=== PATIENT | male | born 1940 | race Caucasian/White ===

== ENCOUNTER 2025-01-01 14:51 | Inpatient (IN) | payer MEDICARE, OTHER ==
[~2025-01-01] VITALS: Ht 170.2 cm; Wt 71.7 kg
[2025-01-01 15:37] LABS: BASOPHILS # (AUTO) 0.1 K/UL (0.0-0.2); BASOPHILS % (AUTO) 0.7 % (0.0-2.0); EOSINOPHILS # (AUTO) 0.1 K/uL (0.0-0.7); EOSINOPHILS % (AUTO) 1.7 % (0.0-7.0); HEMATOCRIT 39.4 % (36.7-47.1); HEMOGLOBIN 13.7 g/dL (12.5-16.3); LYMPHOCYTES # (AUTO) 1.8 K/uL (0.8-4.8); LYMPHOCYTES % (AUTO) 23.6 % (20.5-51.5); MEAN CORPUSCULAR HEMOGLOBIN 32.7 uug (23.8-33.4); MEAN CORPUSCULAR HGB CONC 35 g/dL (32.5-36.3); MEAN CORPUSCULAR VOLUME 94.3 fL (73.0-96.2); MONOCYTES # (AUTO) 0.5 K/uL (0.1-1.30); MONOCYTES % (AUTO) 6.2 % (0.0-11.0); NEUTROPHILS # (AUTO) 5.2 K/uL (1.8-8.9); NEUTROPHILS % (AUTO) 67.8 % (38.5-71.5); PLATELET COUNT (AUTO) 151 K/uL (152-348); RED BLOOD CELL COUNT(AUTO) 4.17 MIL/uL (4.06-5.63); RED CELL DISTRIBUTION WIDTH 14.1 % (12.1-16.2); WHITE BLOOD COUNT (AUTO) 7.7 K/uL (3.6-10.2)
[2025-01-01 15:42] LABS: CARBON DIOXIDE 27 mmol/L (21-32); CHLORIDE 104 mmol/L (98-107); CREATININE 1.3 mg/dL (0.6-1.3); DIFFERENTIAL COMMENT 1; GLUCOSE 159 mg/dL (74-106); POTASSIUM 3.8 mmol/L (3.5-5.1); SODIUM SERUM 142 mmol/L (136-145); UREA NITROGEN, BLOOD 26 mg/dL (7-18)
[2025-01-01] MEDS: IV NORMAL SALINE 1000 ML BAG IV ONE (15:46)
[2025-01-01 15:54] LABS: LACTIC ACID 2.9 mmol/L (0.4-2.0)
[2025-01-01 15:55] LABS: ALANINE AMINOTRANSFERASE 15 U/L (16-63); ALBUMIN 3.4 g/dL (3.4-5.0); ALKALINE PHOSPHATASE 86 U/L (50-136); ASPARTATE AMINOTRANSFERASE 14 U/L (15-37); BILIRUBIN,DIRECT 0.2 mg/dL (0.0-0.2); BILIRUBIN,TOTAL 0.5 mg/dL (0.2-1.0); NT-PRO BNP 163 pg/mL (0-125)
[2025-01-01] MEDS ORDERED: CEFTRIAXONE /D5W 50ML IVPB **ER PYXIS IV ONE (16:17)
[2025-01-01] MEDS ORDERED: AZITHROMYCIN 500MG/ D5W 250ML IVPB **ER PYXIS ONLY IV ONE (16:17)
[2025-01-01] MEDS: CEFTRIAXONE 1 G in IV DEXTROSE 5% 50 ML IV ONE (16:19)
[2025-01-01] MEDS: AZITHROMYCIN IV 500 MG in IV DEXTROSE 5% 250 ML IV ONE (16:23)
[2025-01-01] MEDS ORDERED: ACETAMINOPHEN 325 MG TABLET PO PRN (17:15)
[2025-01-01] MEDS ORDERED: ONDANSETRON 4 MG/2 ML VIAL IV PRN (17:15)
[2025-01-01] MEDS ORDERED: MORPHINE SULFATE 2 MG/1 ML DISP.SYRIN IVP PRN (17:15)
[2025-01-01] MEDS ORDERED: DEXTROSE 50% 50 ML DISP.SYRIN IV PRN (17:15)
[2025-01-01] MEDS ORDERED: ICOS1CAP PO (17:45)
[2025-01-01] MEDS ORDERED: ATOR40TA PO (17:45)
[2025-01-01] MEDS ORDERED: METO25TA6 PO (17:45)
[2025-01-01] MEDS ORDERED: CHOL500062 PO (17:45)
[2025-01-01] MEDS ORDERED: AMLO2.5T4 PO (17:45)
[2025-01-01] MEDS ORDERED: ASPI-1169 PO (17:45)
[2025-01-01] MEDS ORDERED: [UNRECOGNIZED DRUG - CODE] PO (17:45)
[2025-01-01] MEDS ORDERED: LOSA50TA3 PO (17:45)
[2025-01-01] MEDS ORDERED: HYDR-3980 PO (17:45)
[2025-01-01] MEDS ORDERED: BLOO-1672 PO (17:45)
[2025-01-01] MEDS ORDERED: FAMO20TA8 PO (17:45)
[2025-01-01] MEDS ORDERED: SITA100T PO (17:45)
[2025-01-01] MEDS ORDERED: DAPA10TA PO (17:45)
[2025-01-01] MEDS ORDERED: METF-442 PO (17:45)
[2025-01-01] MEDS ORDERED: TAMS-3 PO (17:45)
[2025-01-01 18:52] VITALS: BP 111/75; TEMP 97.8; O2SAT 99
[2025-01-01 19:00] VITALS: BP 111/75; TEMP 97.8; O2SAT 99
[2025-01-01] MEDS: IV NS 1000 ML 1,000 ML IV ONE (19:45)
[2025-01-01] MEDS: BLOOD SUGAR DIAGNOSTIC 1 EACH STRIP VI SCH (20:37)
[2025-01-01] MEDS: ATORVASTATIN 40 MG TABLET PO SCH (20:37)
[2025-01-01] MEDS: IV NS 1000 ML 1,000 ML IV SCH (20:57)
[2025-01-02] VITALS (7 sets, daily range): BP systolic 138–176; BP diastolic 61–84; TEMP 97.5–98.6; O2SAT 96–100
[2025-01-02 06:52] LABS: *BILIRUBIN,URIN NEGATIVE (NEGATIVE); *CLARITY,URINE CLEAR (CLEAR); *COLOR,URINE YELLOW (YELLOW); *KETONES,URINE NEGATIVE (NEGATIVE); *PROTEIN,URINE NEGATIVE (NEGATIVE); *UROBILINOGEN,URINE 0.2 E.U./dl (NORMAL); LEUKOCYTE ESTERASE ,URINE NEGATIVE (NEGATIVE); NITRITE, URINE NEGATIVE (NEGATIVE)
[2025-01-02 06:55] LABS: *BLOOD, URINE TRACE (NEGATIVE); UGLUCOSE 2+ (NEGATIVE)
[2025-01-02 06:56] LABS: BASOPHILS % (AUTO) 0.6 % (0.0-2.0); EOSINOPHILS # (AUTO) 0.1 K/uL (0.0-0.7); EOSINOPHILS % (AUTO) 1.9 % (0.0-7.0); HEMATOCRIT 38.6 % (36.7-47.1); HEMOGLOBIN 13.5 g/dL (12.5-16.3); LYMPHOCYTES # (AUTO) 1.3 K/uL (0.8-4.8); MEAN CORPUSCULAR HGB CONC 35 g/dL (32.5-36.3); MEAN CORPUSCULAR VOLUME 94.3 fL (73.0-96.2); MONOCYTES # (AUTO) 0.4 K/uL (0.1-1.30); MONOCYTES % (AUTO) 6.1 % (0.0-11.0); NEUTROPHILS # (AUTO) 4.6 K/uL (1.8-8.9); NEUTROPHILS % (AUTO) 71.4 % (38.5-71.5); PLATELET COUNT (AUTO) 133 K/uL (152-348); RED BLOOD CELL COUNT(AUTO) 4.09 MIL/uL (4.06-5.63); RED CELL DISTRIBUTION WIDTH 13.8 % (12.1-16.2); WHITE BLOOD COUNT (AUTO) 6.4 K/uL (3.6-10.2)
[2025-01-02 07:08] LABS: DIFFERENTIAL COMMENT 1
[2025-01-02 07:16] LABS: ALANINE AMINOTRANSFERASE 14 U/L (16-63); ALBUMIN 3.2 g/dL (3.4-5.0); ALKALINE PHOSPHATASE 83 U/L (50-136); ASPARTATE AMINOTRANSFERASE 15 U/L (15-37); BILIRUBIN,TOTAL 0.8 mg/dL (0.2-1.0); CALCIUM 8.7 mg/dL (8.5-10.1); CARBON DIOXIDE 26 mmol/L (21-32); CHLORIDE 109 mmol/L (98-107); CREATININE 0.8 mg/dL (0.6-1.3); GLUCOSE 101 mg/dL (74-106); PHOSPHOROUS 3.1 mg/dL (2.5-4.9); POTASSIUM 3.8 mmol/L (3.5-5.1); SODIUM SERUM 143 mmol/L (136-145); TOTAL PROTEIN, SERUM 6.7 g/dL (6.4-8.2); UREA NITROGEN, BLOOD 15 mg/dL (7-18)
[2025-01-02 07:46] LABS: WBC,URINE 0-3 /HPF (0-3)
[2025-01-02] MEDS: TAMSULOSIN HCL 0.4 MG CAP.SR.24H PO SCH (08:05)
[2025-01-02] MEDS: DAPAGLIFLOZIN PROPANEDIOL 10 MG TABLET PO SCH (08:05)
[2025-01-02] MEDS: ASPIRIN 81 MG TAB.CHEW PO SCH (08:05)
[2025-01-02] MEDS: HEPARIN SODIUM,PORCINE 5,000 UNITS/ML VIAL SQ SCH (08:06)
[2025-01-02] MEDS: hydrALAZINE HCL 20 MG/1 ML VIAL IV PRN (08:07)
[2025-01-02] MEDS: INSULIN REGULAR, HUMAN 1000 UNIT/10 ML VIAL SQ PRN (12:05)
[2025-01-02] MEDS ORDERED: INSU3INS6 SQ (16:34)
[2025-01-02] MEDS: OMEGA-3 FATTY ACIDS/FISH OIL CAPSULE PO SCH (17:30)
[2025-01-02] MEDS: IV NS 1000 ML 1,000 ML IV PRN (19:23)
[2025-01-02] MEDS: ATORVASTATIN 40 MG TABLET PO SCH (20:38)
[2025-01-02] MEDS: INSULIN REGULAR, HUMAN 300 UNITS/3 ML VIAL SQ PRN (20:46)
[2025-01-03 05:18] VITALS: BP 136/73; TEMP 98; O2SAT 96
[2025-01-03 07:33] VITALS: BP 161/70; TEMP 97.7; O2SAT 95
[2025-01-03 11:47] VITALS: BP 154/75; TEMP 97.7; O2SAT 98
== END 2025-01-03 13:55 | disposition home health service (06) | DRG 309 ==
LOC: ER 14:51 → TELE3 17:46
PROVIDERS: ADMIT Internal Medicine; ATTEND Internal Medicine
DX: I44.1 Atrioventricular block, second degree (principal); E87.20 Acidosis, unspecified; H91.91 Unspecified hearing loss, right ear; R62.7 Adult failure to thrive; Z68.24 Body mass index [BMI] 24.0-24.9, adult; E78.5 Hyperlipidemia, unspecified; Z79.82 Long term (current) use of aspirin; Z79.84 Long term (current) use of oral hypoglycemic drugs; E11.9 Type 2 diabetes mellitus without complications; I25.10 Atherosclerotic heart disease of native coronary artery without angina pectoris; F03.90 Unspecified dementia, unspecified severity, without behavioral disturbance, psychotic disturbance, mood disturbance, and anxiety; I10 Essential (primary) hypertension; I95.9 Hypotension, unspecified
CPT/HCPCS: 36415; 70450; 71045; 83605; 84100; 84484; 85025; 85730; 87040; 93307; A4663; G0378; J0360; J0456; J0696; J1644; J1815; J7040